=== PATIENT | female | born 1965 | race Caucasian/White ===

== ENCOUNTER 2018-03-13 08:10 | Inpatient (IN) | payer BC ==
[~2018-03-13] VITALS: Ht 165.1 cm; Wt 83.0 kg
[2018-03-13] MEDS ORDERED: NACL 0.9% 1,000 ML IV ONE ×3 (08:24→13:30)
[2018-03-13] MEDS ORDERED: NS 1000 ML IV.SOLN IV ONE ×2 (08:30→09:00)
[2018-03-13] MEDS ORDERED: ACETAMINOPHEN 500 MG TABLET PO ONE (08:30)
[2018-03-13 08:34] VITALS: BP_SYST 104
[2018-03-13] MEDS ORDERED: ONDANSETRON HCL 4 MG/2 ML VIAL IVP ONE ×2 (09:00→14:00)
[2018-03-13] MEDS ORDERED: MORPHINE SULFATE 10 MG/ML VIAL IVP ONE (09:00)
[2018-03-13] MEDS ORDERED: cefTRIAXone 1 GM IVPB PREMIX 50 ML IV ONE (09:00)
[2018-03-13 09:24] LABS: CALCIUM 9.1 mg/dL (8.4-11.0); CREATININE 2.08 mg/dL (0.55-1.30); HEMOGLOBIN 10.4 g/dL (12.0-16.0); MEAN CORPUSCULAR HEMOGLOBIN 29 pg (27-31); MEAN CORPUSCULAR HGB CONC 31 % (32-36); MEAN CORPUSCULAR VOLUME 92 fL (79.0-98.0); PLATELET COUNT (AUTO) 191 K/uL (130-430); POTASSIUM 3.9 mmol/L (3.5-5.1); RED BLOOD CELL COUNT(AUTO) 3.58 MIL/uL (4.2-6.2); RED CELL DISTRIBUTION WIDTH 11.7 % (9.0-15.0); WHITE BLOOD COUNT (AUTO) 5.3 K/uL (4.8-10.8)
[2018-03-13 09:25] LABS: PROTHROMBIN TIME 10.3 SECS (9.5-12.5)
[2018-03-13 09:36] LABS: ALBUMIN 3.7 g/dL (3.4-4.8); TOTAL BILIRUBIN 0.2 mg/dL (0.0-1.0)
[2018-03-13 09:56] LABS: ATYPICAL LYMPHOCYTES % 1 % (0-0); BAND % (MANUAL) 15 % (0-6); BASOPHILS % (MANUAL) 0 % (0-2); EOSINOPHILS % (MANUAL) 0 % (0-7); LYMPHOCYTES % (MANUAL) 3 % (20-46); MONOCYTES % (MANUAL) 2 % (0-11)
[2018-03-13] MEDS ORDERED: MORPHINE 4 MG/ML INJ. SYRINGE IVP ONE ×2 (10:45→12:45)
[2018-03-13] MEDS ORDERED: PANT20TA2 PO (12:50)
[2018-03-13] MEDS ORDERED: LORA-259 PO (12:50)
[2018-03-13] MEDS ORDERED: HYDR-2489 PO (12:50)
[2018-03-13] MEDS ORDERED: NEU400 PO (12:50)
[2018-03-13] MEDS ORDERED: ACETAMINOPHEN 325 MG TABLET PO PRN (13:30)
[2018-03-13 14:01] VITALS: BP_SYST 97
[2018-03-13] MEDS ORDERED: LEVOFLOXACIN 250 MG/D5W 50 ML IV SCH (15:00)
[2018-03-13] MEDS: MORPHINE 4 MG/ML INJ. SYRINGE IVP PRN ×3 (15:05→22:42)
[2018-03-13] MEDS ORDERED: DIPHENHYDRAMINE INJ 50 MG/ML VIAL IVP PRN (15:15)
[2018-03-13] MEDS ORDERED: metroNIDAZOLE 500 mg/NS 100 ML IV ONE (15:15)
[2018-03-13] MEDS: DIPHENHYDRAMINE INJ 50 MG/ML VIAL IVP PRN (15:22)
[2018-03-13] MEDS: NACL 0.9% 1,000 ML IV SCH (15:30)
[2018-03-13 16:00] VITALS: BP_SYST 98
[2018-03-13 19:00] VITALS: BP_SYST 102
[2018-03-13 20:00] VITALS: BP_SYST 102
[2018-03-13] MEDS: ONDANSETRON HCL 4 MG/2 ML VIAL IVP PRN (20:07)
[2018-03-13] MEDS: metroNIDAZOLE 500 mg/NS 100 ML IV SCH (21:34)
[2018-03-13] MEDS ORDERED: HYDROmorphone 1 MG INJ. 1 MG/ML AMPUL IVP ONE (23:30)
[2018-03-14 00:53] VITALS: BP_SYST 98
[2018-03-14] MEDS ORDERED: HYDROmorphone 1 MG INJ. 1 MG/ML AMPUL IVP ONE (02:30)
[2018-03-14] MEDS: ONDANSETRON HCL 4 MG/2 ML VIAL IVP PRN ×4 (02:36→18:36)
[2018-03-14] MEDS: DIPHENHYDRAMINE INJ 50 MG/ML VIAL IVP PRN ×4 (02:37→18:37)
[2018-03-14] MEDS: NACL 0.9% 1,000 ML IV SCH ×3 (02:41→21:30)
[2018-03-14] MEDS: MORPHINE 4 MG/ML INJ. SYRINGE IVP PRN (04:27)
[2018-03-14] MEDS: metroNIDAZOLE 500 mg/NS 100 ML IV SCH ×3 (05:31→21:03)
[2018-03-14 06:48] LABS: BASOPHILS % (AUTO) 0.1 % (0.0-2.0); EOSINOPHILS # (AUTO) 0.1 K/uL (0.0-0.4); EOSINOPHILS % (AUTO) 2.1 % (0.0-4.0); HEMATOCRIT 27.5 % (36-48); HEMOGLOBIN 9.1 g/dL (12.0-16.0); LYMPHOCYTES # (AUTO) 0.5 K/uL (1.0-5.5); LYMPHOCYTES % (AUTO) 6.6 % (20.5-51.5); MEAN CORPUSCULAR HEMOGLOBIN 30 pg (27-31); MEAN CORPUSCULAR HGB CONC 33 % (32-36); MEAN CORPUSCULAR VOLUME 92 fL (79.0-98.0); MONOCYTES # (AUTO) 0.5 K/uL (0.0-1.0); MONOCYTES % (AUTO) 6.7 % (1.7-9.3); NEUTROPHILS % (AUTO) 84.5 % (40.0-70.0); PLATELET COUNT (AUTO) 131 K/uL (130-430); RED BLOOD CELL COUNT(AUTO) 2.98 MIL/uL (4.2-6.2); RED CELL DISTRIBUTION WIDTH 11.7 % (9.0-15.0); WHITE BLOOD COUNT (AUTO) 7.1 K/uL (4.8-10.8)
[2018-03-14 07:42] LABS: ALBUMIN 2.8 g/dL (3.4-4.8); CALCIUM 8.4 mg/dL (8.4-11.0); CREATININE 0.91 mg/dL (0.55-1.30); POTASSIUM 3.5 mmol/L (3.5-5.1); TOTAL BILIRUBIN 0.1 mg/dL (0.0-1.0)
[2018-03-14 08:19] VITALS: BP_SYST 107
[2018-03-14 08:32] LABS: C-REACTIVE PROTEIN QUANT 19.9 mg/dL (0-0.5)
[2018-03-14] MEDS: HYDROmorphone 2 MG/ML VIAL IVP PRN ×4 (08:50→20:57)
[2018-03-14] MEDS: LACTOBACILLUS RHAMNOSUS GG 1 CAP CAPSULE PO SCH ×2 (08:51→20:57)
[2018-03-14] MEDS: PANTOPRAZOLE SODIUM 40 MG/VIAL (PROTONIX) IVP SCH (08:51)
[2018-03-14] MEDS: ENOXAPARIN SODIUM 30 MG/0.3 ML SYRINGE SUBCUT SCH (08:53)
[2018-03-14] MEDS ORDERED: ENOXAPARIN SODIUM 60 MG/0.6 ML SYRINGE SUBCUT SCH (09:00)
[2018-03-14 09:24] LABS: ERYTHROCYTE SEDIMENTATION RATE 14 MM/HR (0-20)
[2018-03-14] MEDS ORDERED: PIPERACILLIN/TAZO 3.375/DEX-IS 50 ML IV SCH (12:00)
[2018-03-14 12:48] VITALS: BP_SYST 94
[2018-03-14 16:02] VITALS: BP_SYST 105
[2018-03-14 20:00] VITALS: BP_SYST 115
[2018-03-14] MEDS: MESALAMINE 400 MG CAPSULE.DR PO SCH (20:57)
[2018-03-15 00:30] VITALS: BP_SYST 120
[2018-03-15] MEDS: ONDANSETRON HCL 4 MG/2 ML VIAL IVP PRN ×4 (00:59→16:06)
[2018-03-15] MEDS: DIPHENHYDRAMINE INJ 50 MG/ML VIAL IVP PRN ×4 (00:59→19:35)
[2018-03-15] MEDS: HYDROmorphone 2 MG/ML VIAL IVP PRN ×6 (00:59→21:32)
[2018-03-15] MEDS: NACL 0.9% 1,000 ML IV SCH ×2 (01:54→16:06)
[2018-03-15] MEDS: metroNIDAZOLE 500 mg/NS 100 ML IV SCH ×2 (05:29→14:34)
[2018-03-15 08:00] VITALS: BP_SYST 128
[2018-03-15] MEDS: MESALAMINE 400 MG CAPSULE.DR PO SCH ×3 (09:00→21:00)
[2018-03-15] MEDS: LACTOBACILLUS RHAMNOSUS GG 1 CAP CAPSULE PO SCH ×2 (09:00→21:00)
[2018-03-15] MEDS: PANTOPRAZOLE SODIUM 40 MG/VIAL (PROTONIX) IVP SCH (09:15)
[2018-03-15] MEDS: ENOXAPARIN SODIUM 30 MG/0.3 ML SYRINGE SUBCUT SCH (09:16)
[2018-03-15 10:16] LABS: CALCIUM 8.5 mg/dL (8.4-11.0); CREATININE 0.87 mg/dL (0.55-1.30); POTASSIUM 3.7 mmol/L (3.5-5.1)
[2018-03-15 10:17] LABS: BASOPHILS % (AUTO) 0.2 % (0.0-2.0); EOSINOPHILS # (AUTO) 0.4 K/uL (0.0-0.4); EOSINOPHILS % (AUTO) 6.1 % (0.0-4.0); HEMATOCRIT 27.8 % (36-48); HEMOGLOBIN 8.6 g/dL (12.0-16.0); LYMPHOCYTES # (AUTO) 0.5 K/uL (1.0-5.5); LYMPHOCYTES % (AUTO) 8.7 % (20.5-51.5); MEAN CORPUSCULAR HEMOGLOBIN 28 pg (27-31); MEAN CORPUSCULAR HGB CONC 31 % (32-36); MEAN CORPUSCULAR VOLUME 92 fL (79.0-98.0); MONOCYTES # (AUTO) 0.3 K/uL (0.0-1.0); MONOCYTES % (AUTO) 5.9 % (1.7-9.3); NEUTROPHILS # (AUTO) 4.7 K/uL (1.8-7.7); NEUTROPHILS % (AUTO) 79.1 % (40.0-70.0); PLATELET COUNT (AUTO) 124 K/uL (130-430); RED BLOOD CELL COUNT(AUTO) 3.03 MIL/uL (4.2-6.2); RED CELL DISTRIBUTION WIDTH 11.6 % (9.0-15.0); WHITE BLOOD COUNT (AUTO) 5.9 K/uL (4.8-10.8)
[2018-03-15 10:22] LABS: ALBUMIN 2.9 g/dL (3.4-4.8); TOTAL BILIRUBIN 0.2 mg/dL (0.0-1.0)
[2018-03-15 12:00] VITALS: BP_SYST 117
[2018-03-15 16:00] VITALS: BP_SYST 122
[2018-03-15] MEDS ORDERED: PROMETHAZINE HCL 25 MG/ML AMP IM PRN (17:15)
[2018-03-15] MEDS ORDERED: METOCLOPRAMIDE HCL 10 MG/2 ML VIAL IVP PRN (18:00)
[2018-03-15 20:00] VITALS: BP_SYST 130
[2018-03-16 00:58] VITALS: BP_SYST 130
[2018-03-16] MEDS: DIPHENHYDRAMINE INJ 50 MG/ML VIAL IVP PRN ×2 (01:37→07:34)
[2018-03-16] MEDS: HYDROmorphone 2 MG/ML VIAL IVP PRN ×3 (01:38→09:50)
[2018-03-16] MEDS: NACL 0.9% 1,000 ML IV SCH (03:30)
[2018-03-16] MEDS: ONDANSETRON HCL 4 MG/2 ML VIAL IVP PRN ×2 (05:35→09:49)
[2018-03-16 06:54] LABS: BASOPHILS % (AUTO) 0.1 % (0.0-2.0); EOSINOPHILS # (AUTO) 0.4 K/uL (0.0-0.4); EOSINOPHILS % (AUTO) 6.7 % (0.0-4.0); HEMATOCRIT 29.6 % (36-48); HEMOGLOBIN 9.6 g/dL (12.0-16.0); LYMPHOCYTES % (AUTO) 15.7 % (20.5-51.5); MEAN CORPUSCULAR HEMOGLOBIN 30 pg (27-31); MEAN CORPUSCULAR HGB CONC 32 % (32-36); MEAN CORPUSCULAR VOLUME 93 fL (79.0-98.0); MONOCYTES # (AUTO) 0.4 K/uL (0.0-1.0); MONOCYTES % (AUTO) 5.7 % (1.7-9.3); NEUTROPHILS # (AUTO) 4.8 K/uL (1.8-7.7); NEUTROPHILS % (AUTO) 71.8 % (40.0-70.0); PLATELET COUNT (AUTO) 186 K/uL (130-430); RED CELL DISTRIBUTION WIDTH 11.6 % (9.0-15.0); WHITE BLOOD COUNT (AUTO) 6.6 K/uL (4.8-10.8)
[2018-03-16 07:09] LABS: CALCIUM 8.7 mg/dL (8.4-11.0); CREATININE 0.79 mg/dL (0.55-1.30); POTASSIUM 3.8 mmol/L (3.5-5.1); TOTAL BILIRUBIN 0.2 mg/dL (0.0-1.0)
[2018-03-16 07:30] VITALS: BP_SYST 128
[2018-03-16] MEDS: ENOXAPARIN SODIUM 30 MG/0.3 ML SYRINGE SUBCUT SCH (09:00)
[2018-03-16] MEDS: LACTOBACILLUS RHAMNOSUS GG 1 CAP CAPSULE PO SCH (09:00)
[2018-03-16] MEDS: MESALAMINE 400 MG CAPSULE.DR PO SCH (09:00)
[2018-03-16] MEDS: PANTOPRAZOLE SODIUM 40 MG/VIAL (PROTONIX) IVP SCH (09:50)
[2018-03-16] MEDS ORDERED: ASA400 PO (10:03)
[2018-03-16] MEDS ORDERED: LACT1CAP57 PO (10:03)
[2018-03-16] MEDS ORDERED: MULT-1089 PO (10:04)
[2018-03-16 10:06] VITALS: BP_SYST 128
== END 2018-03-16 11:10 | disposition home or self-care (01) | DRG 392 ==
LOC: SED 08:10 → SMU 13:25
PROVIDERS: ADMIT Internal Medicine; ATTEND Internal Medicine
DX: K52.9 Noninfective gastroenteritis and colitis, unspecified (principal); N17.9 Acute kidney failure, unspecified; D64.9 Anemia, unspecified; F32.9 Major depressive disorder, single episode, unspecified; G89.4 Chronic pain syndrome; E86.0 Dehydration; K21.9 Gastro-esophageal reflux disease without esophagitis; Z53.20 Procedure and treatment not carried out because of patient's decision for unspecified reasons; Z90.3 Acquired absence of stomach [part of]; Z90.49 Acquired absence of other specified parts of digestive tract; Z98.84 Bariatric surgery status; Z79.899 Other long term (current) drug therapy
CPT/HCPCS: 36415; 71045; 80048; 80053; 82150-TC; 83605; 83690-TC; 84484; 85007; 85025; 85027; 85610-TC; 85651-TC; 85730-TC; 86140; 87040-TC; 87497; 93005; 96361; 96365; 96375; 99285; C9113; J0696; J1170; J1200; J1650; J1956; J2270; J2405; J2543; J3490; J7030

== ENCOUNTER 2018-06-06 16:20 | Emergency (ER) | payer BC ==
[~2018-06-06] VITALS: Ht 167.6 cm; Wt 81.6 kg
[~2018-06-06 16:20] MED LIST: ASA400 PO; HYDR-4274 PO; LACT1CAP57 PO; LORA-259 PO; MULT-1089 PO; NEU400 PO; PANT20TA2 PO
--- NOTE | 2018-06-06 16:25 | NUR ---
Arrived via [facility] ambulance with compliant of syncopal episode. Patient is hypotensive on arrival with BP 53/36. No IV or EKG done by EMS. Placed in room 4 . Placed on library assistant, blood pressure machine and pulse oximeter. To gown for exam. Side rails up. Report given to Chris JAVIER.
[2018-06-06 16:30] VITALS: BP_SYST 53
--- NOTE | 2018-06-06 16:40 | NUR ---
ER at bedside examining patient.
[2018-06-06] MEDS ORDERED: NACL 0.9% 1,000 ML IV ONE ×2 (16:45→17:45)
--- NOTE | 2018-06-06 16:45 | NUR ---
# 20 gauge angiocath placed to RAC. Use of asceptic technique. Opsite placed over site. Blood return noted. Blood for lab drawn from site. Flushed with 10 cc of normal saline. No evidence of infiltration noted. Patient tolerated well.
[2018-06-06 17:04] LABS: CALCIUM 9.2 mg/dL (8.4-11.0); CREATININE 2.25 mg/dL (0.55-1.30); POTASSIUM 3.1 mmol/L (3.5-5.1)
[2018-06-06 17:22] LABS: ALBUMIN 4.4 g/dL (3.4-4.8); TOTAL BILIRUBIN 0.4 mg/dL (0.0-1.0)
[2018-06-06 17:29] LABS: PROTHROMBIN TIME 9.9 SECS (9.5-12.5)
--- NOTE | 2018-06-06 17:30 | NUR ---
Pt reports marked ease in symptoms.Pt BP 98/53.
[2018-06-06 17:41] LABS: HEMATOCRIT 35.5 % (36-48); MEAN CORPUSCULAR HEMOGLOBIN 30 pg (27-31); MEAN CORPUSCULAR HGB CONC 34 % (32-36); MEAN CORPUSCULAR VOLUME 89 fL (79.0-98.0); RED BLOOD CELL COUNT(AUTO) 3.98 MIL/uL (4.2-6.2); WHITE BLOOD COUNT (AUTO) 6.7 K/uL (4.8-10.8)
[2018-06-06 17:42] LABS: BASOPHILS % (AUTO) 0.5 % (0.0-2.0); EOSINOPHILS % (AUTO) 0.3 % (0.0-4.0); LYMPHOCYTES % (AUTO) 25.3 % (20.5-51.5); MONOCYTES % (AUTO) 5.5 % (1.7-9.3); NEUTROPHILS # (AUTO) 4.6 K/uL (1.8-7.7); NEUTROPHILS % (AUTO) 68.4 % (40.0-70.0); PLATELET COUNT (AUTO) 319 K/uL (130-430); RED CELL DISTRIBUTION WIDTH 13.1 % (9.0-15.0)
[2018-06-06 17:43] LABS: LYMPHOCYTES # (AUTO) 1.7 K/uL (1.0-5.5); MONOCYTES # (AUTO) 0.4 K/uL (0.0-1.0)
[2018-06-06 19:30] VITALS: BP_SYST 100
--- NOTE | 2018-06-06 19:30 | NUR ---
Patient given written and verbal discharge instructions and verbalizes understanding. ER MD Hernandez discussed with patient the results and treatment provided. Patient in stable condition. ID arm band removed. IV catheter removed intact and dressing applied, no active bleeding. Rx of Zofran given. Patient educated on pain management and to follow up with PMD. Pain Scale 0/10. Opportunity for questions provided and answered. Medication side effect fact sheet provided.
--- NOTE | 2018-06-06 19:31 | NUR ---
Pt's discharge paper at bedside. Pt already discharged, will contact Pt that they left their discharge paperwork.
== END 2018-06-06 19:30 | disposition home or self-care (01) ==
LOC: SED 16:20
DX: E86.0 Dehydration (principal); N17.9 Acute kidney failure, unspecified; R55 Syncope and collapse; Z90.49 Acquired absence of other specified parts of digestive tract; Z79.899 Other long term (current) drug therapy
CPT/HCPCS: 36415; 71045; 80053; 83880; 84484; 85025; 85610; 85730; 86886; 86900; 86901; 93005; 96360; 99284; J7030